=== PATIENT | female | born 1990 | race African-American/Black ===

== ENCOUNTER → 2020-10-13 | Emergency (ER) | payer BC, OTHER ==
[~2020-10-13] VITALS: Ht 165.1 cm; Wt 81.6 kg
[~2020-10-13] MED LIST: AMOXICILLIN500 MG ORAL
[2020-10-13 08:59] VITALS: BP 121/72
--- NOTE | 2020-10-13 09:29 | Emergency Room Report ---
History of Present Illness General Chief Complaint: Sore Throat Source: Patient Present Illness HPI 30-year-old female presents for evaluation. Complaining of sore throat for the last 4 days. Believes that she got strep throat from her coworker who was diagnosed with strep throat. Pain is dull, 6 out of 10, nonradiating. Took Motrin without significant relief. Denies fevers or chills. Denies cough. No other aggravating relieving factors. Denies any other associated symptoms Allergies: Coded Allergies: No Known Allergies (Verified Allergy, Unknown, 02/27/10) COVID-19 Screening Contact w/high risk pt: No Experienced COVID-19 symptoms?: No COVID-19 Testing performed [employer]ODUCT [employer]ING [employer]ESSION[employer]: Yes COVID-19 Screening: Negative COVID-19 COVID-19 Testing Source: Job site Patient History Past Medical History: none Past Surgical History: other - Tonsillectomy Pertinent Family History: none Social History: Denies: smoking, alcohol use, drug use Last Menstrual Period: 09/21/2020 Now: No : 0 Para: 0 Immunizations: UTD Reviewed Nursing Documentation: PMH: Agreed; PSxH: Agreed Nursing Documentation-PMH Past Medical History: No Stated History Review of Systems All Other Systems: negative except mentioned in HPI Physical Exam Vital Signs Date Time Temp Pulse Resp B/P (MAP) Pulse Ox O2 Delivery O2 Flow Rate FiO2 10/13/20 08:59 98.4 76 16 121/72 (88) 100 Room Air Sp02 EP Interpretation: reviewed, normal General Appearance: no apparent distress, alert, GCS 15, non-toxic Head: normocephalic, atraumatic Eyes: bilateral eye normal inspection, bilateral eye PERRL ENT: hearing grossly normal, no angioedema, normal voice, pharyngeal erythema Neck: full range of motion, supple/symm/no masses Respiratory: chest non-tender, lungs clear, normal breath sounds, speaking full sentences Cardiovascular #1: regular rate, rhythm, no edema Cardiovascular #2: 2+ carotid (R), 2+ carotid (L), 2+ radial (R), 2+ radial (L), 2+ dorsalis pedis (R), 2+ dorsalis pedis (L) Gastrointestinal: normal bowel sounds, non tender, soft, non-distended, no guarding, no rebound Rectal: deferred Genitourinary: normal inspection, no CVA tenderness Musculoskeletal: back normal, normal range of motion, gait/station normal, non- tender Neurologic: alert, motor strength/tone normal, oriented x3, sensory intact, responsive, speech normal Psychiatric: judgement/insight normal, memory normal, mood/affect normal, no suicidal/homicidal ideation Reflexes: 3+ bicep (R), 3+ bicep (L), 3+ tricep (R), 3+ tricep (L), 3+ knee (R), 3+ knee (L) Skin: no rash Lymphatic: no adenopathy Medical Decision Making Diagnostic Impression: Primary Impression: Pharyngitis Qualified Codes: J02.9 - Acute pharyngitis, unspecified ER Course Hospital Course 30-year-old female presents to ED complaining of sore throat Differential diagnoses include: URI, pharyngitis, otitis media Clinical course Patient placed on stretcher. After initial history, physical exam reveals a young male in no acute distress. Bilateral TM unremarkable. There is pha ryngeal erythema. No lymphadenopathy. Clinical findings consistent with pharyngitis. Diagnosis - pharyngitis Stable and discharged home with prescriptions for amoxicillin. Instructed to followup with PMD. return to ED if symptoms recur or worsen Last Vital Signs Date Time Temp Pulse Resp B/P (MAP) Pulse Ox O2 Delivery O2 Flow Rate FiO2 10/13/20 09:12 Room Air 10/13/20 08:59 98.4 76 16 121/72 (88) 100 Status: improved Disposition: HOME, SELF-CARE Condition: Stable Scripts Amoxicillin* (AMOXIL*) 500 Mg Capsule 500 MG ORAL THREE TIMES A DAY, #21 CAP Prov: Benja John MD 10/13/20 Referrals: [facility] Patient Instructions: Pharyngitis, [id number] Benja John MD Oct 13, 2020 09:29
== END | disposition home or self-care (01) ==
LOC: EMR 09:30
DX: J02.9 Acute pharyngitis, unspecified (principal)
CPT/HCPCS: 99282